=== PATIENT | female | born 1995 | race Two or more races ===

== ENCOUNTER 2018-05-06 18:08 | Emergency (ER) | payer OTHER ==
[~2018-05-06] VITALS: Ht 175.3 cm; Wt 90.7 kg
--- NOTE | 2018-05-06 18:15 | NUR ---
RT SIDE ABDOMEN PAIN X 4 MONTHS, WORSE WHEN COUGHING. COUGH X 1 WEEK, NAUSEA,NAD NOTED, VSS, RESP EVEN AND UNLABORED, PT WAS PUT ON MONITOR, WAITING FOR MD THOMPSON.
[2018-05-06 18:39] LABS: BASOPHILS # (AUTO) 0.1 /CMM (0.0-0.2); BASOPHILS % (AUTO) 0.9 % (0.0-2.0); HEMATOCRIT 36 % (33-45); LYMPHOCYTES # (AUTO) 2.5 /CMM (0.8-4.8); MEAN CORPUSCULAR HGB CONC 33 g/dl (31.0-36.0); MEAN CORPUSCULAR VOLUME 76 fL (82-100); MONOCYTES # (AUTO) 0.6 /CMM (0.1-1.30); MONOCYTES % (AUTO) 6.3 % (2.0-12.0); NEUTROPHILS # (AUTO) 5.7 /CMM (1.8-8.9); NEUTROPHILS % (AUTO) 62.8 % (43.0-81.0); PLATELET COUNT (AUTO) 389 /CMM (150-450); RDW COEFFICIENT OF VARIATION 14.2 (11.5-15.0); RED BLOOD CELL COUNT(AUTO) 4.77 MIL/uL (4.0-5.2); WHITE BLOOD COUNT (AUTO) 9.1 K/uL (4.3-11.0)
[2018-05-06 18:54] LABS: ALBUMIN 3.3 g/dL (3.4-5.0); BILIRUBIN,DIRECT 0.1 mg/dL (0.0-0.2); BILIRUBIN,TOTAL 0.4 mg/dL (0.2-1.0); CALCIUM, SERUM 9.5 mg/dL (8.5-10.1); CREATININE 0.7 mg/dL (0.6-1.3); POTASSIUM 4.2 mmol/L (3.5-5.1); TOTAL PROTEIN, SERUM 7.6 g/dL (6.4-8.2)
[2018-05-06 19:20] LABS: APPEARANCE,URINE Clear (CLEAR); BILIRUBIN,URINE Negative (NEGATIVE); BLOOD, URINE Negative Ery/uL (NEGATIVE); COLOR,URINE Yellow (YELLOW); KETONES,URINE Negative (NEGATIVE); LEUKOCYTE ESTERASE ,URINE Negative (NEGATIVE); NITRITE, URINE Negative (NEGATIVE); PH,URINE 7.5 (5.0-8.0); PROTEIN,URINE Negative (NEGATIVE); UGLUCOSE Negative (NEGATIVE); UROBILINOGEN,URINE 0.2 EU/dL (0.2)
--- NOTE | 2018-05-06 20:03 | NUR ---
PT BACK FROM [facility]
[2018-05-06 20:50] VITALS: BP 118/75
--- NOTE | 2018-05-06 20:50 | NUR ---
Patient discharged to home in stable condition. Written and verbal after care instructions given. Patient verbalizes understanding of instruction. Prescription given.
== END 2018-05-06 20:51 | disposition home or self-care (01) ==
LOC: ER 18:14
DX: J20.9 Acute bronchitis, unspecified (principal); R10.31 Right lower quadrant pain; R05 Cough
CPT/HCPCS: 36415; 71045-TC; 80048-TC; 80076-TC; 81000-TC; 83690-TC; 84703-TC; 85025-TC; A4606; Z7610

== ENCOUNTER 2020-05-24 20:21 | Emergency (ER) | payer OTHER ==
[~2020-05-24] VITALS: Ht 175.3 cm; Wt 90.7 kg
--- NOTE | 2020-05-24 20:48 | NUR ---
PT PRESENTED TO THE ER WITH A C/O BLOOD ON HER UNDERWEAR AND PT NOTICED BLOOD ON THE TOILET PAPER WHEN SHE WIPED S/P USING THE BATHROOM. PT AMBULATED TO THE BATHROOM AND A URINE SAMPLE WAS OBTAINED. PT AMBULATED TO ER 3 WITH A STEADY GAIT.
--- NOTE | 2020-05-24 20:50 | NUR ---
RECTAL EXAM DONE BY MICHELLE GATICA. Female programmer operator numerical control accompanied female patient for MICHELLE GATICA.
[2020-05-24 21:32] LABS: OCCULT BLOOD STOOL POSITIVE (NEGATIVE)
[2020-05-24] MEDS: IV NS 0.9% 1,000 ML BAG IV ONE (21:51)
[2020-05-24] MEDS ORDERED: PANTOPRAZOLE 40 MG VIAL ONE (21:52)
[2020-05-24 21:54] LABS: BASOPHILS # (AUTO) 0.1 /CMM (0.0-0.2); EOSINOPHILS % (AUTO) 1.3 % (0.0-6.0); HEMATOCRIT 35 % (33-45); HEMOGLOBIN 11.3 g/dL (11.5-14.8); LYMPHOCYTES # (AUTO) 2.9 /CMM (0.8-4.8); LYMPHOCYTES % (AUTO) 27.1 % (20.0-44.0); MEAN CORPUSCULAR HGB CONC 32 g/dl (31.0-36.0); MEAN CORPUSCULAR VOLUME 77 fL (82-100); MONOCYTES # (AUTO) 0.7 /CMM (0.1-1.30); MONOCYTES % (AUTO) 6.1 % (2.0-12.0); NEUTROPHILS % (AUTO) 64.5 % (43.0-81.0); PLATELET COUNT (AUTO) 332 /CMM (150-450); RED BLOOD CELL COUNT(AUTO) 4.55 MIL/uL (4.0-5.2); WHITE BLOOD COUNT (AUTO) 10.9 K/uL (4.3-11.0)
[2020-05-24] MEDS: PANTOPRAZOLE 40 MG VIAL IV ONE (21:54)
[2020-05-24 22:16] LABS: ALBUMIN 3.6 g/dL (3.4-5.0); BILIRUBIN,TOTAL 0.2 mg/dL (0.2-1.0); CREATININE 0.7 mg/dL (0.6-1.3); POTASSIUM 3.6 mmol/L (3.5-5.1); TOTAL PROTEIN, SERUM 7.2 g/dL (6.4-8.2)
[2020-05-24 23:25] VITALS: BP 126/56
--- NOTE | 2020-05-24 23:25 | NUR ---
IV removed. Catheter intact and site benign. Pressure and 4x4 applied to site. No bleeding noted.Patient discharged to home in stable condition. Written and verbal after care instructions given. Patient verbalizes understanding of instruction AND RX. PT AMBULATED OUT WITH A STEADY GAIT. VSS.
== END 2020-05-24 23:25 | disposition home or self-care (01) ==
LOC: ER 20:24
DX: K64.4 Residual hemorrhoidal skin tags (principal)
CPT/HCPCS: 36415; 80048; 80076; 82272; 84703; 85025; 85730; 96374; 99283; C9113; J7030

== ENCOUNTER 2021-11-30 00:27 | Emergency (ER) | payer OTHER ==
[~2021-11-30] VITALS: Ht 175.3 cm; Wt 86.2 kg
--- NOTE | 2021-11-30 01:10 | NUR ---
BIBMOTHER C/O RODRIGUEZ X 1 DAY, WITH N/V. PATIENT ALERT AND ORIENTED X3. AMBULATORY WITH NON LABORED BREAHTING.
[2021-11-30] MEDS ORDERED: ACETAMINOPHEN ES 500 MG TABLET ONE ×2 (01:28→03:43)
[2021-11-30] MEDS: ACETAMINOPHEN ES 500 MG TABLET PO ONE ×2 (01:37→03:48)
--- NOTE | 2021-11-30 01:43 | NUR ---
COVID AND INFLUENZA SWABS DONE AND SENT TO LAB.
[2021-11-30] MEDS ORDERED: ACET325T53 PO (03:55)
[2021-11-30] MEDS ORDERED: IBUP-1955 PO (03:55)
--- NOTE | 2021-11-30 04:20 | NUR ---
Patient discharged to home in stable condition. Written and verbal after care instructions given. Patient verbalizes understanding of instruction.
[2021-11-30 05:32] VITALS: BP 115/66
--- NOTE | 2021-12-08 16:00 | NUR ---
PATIENT HERE TODAY AND INFORMED OF POSITIVE RESULT (PCR)
== END 2021-11-30 05:15 | disposition home or self-care (01) ==
LOC: ER 00:28
DX: U07.1 COVID-19 (principal); R51.9 Headache, unspecified; B34.9 Viral infection, unspecified
CPT/HCPCS: 84703; 87804 ×2; 99283; C9803; U0003

== ENCOUNTER 2021-12-08 15:50 | Emergency (ER) | payer OTHER ==
[~2021-12-08] VITALS: Ht 175.3 cm; Wt 86.2 kg
[~2021-12-08 15:50] MED LIST: ACET325T53 PO; IBUP-1955 PO
[2021-12-08 15:57] VITALS: BP 125/79
--- NOTE | 2021-12-08 15:58 | NUR ---
INFORMED THAT HER COVID PCR TEST CAME BACK POSITIVE TODAY
[2021-12-08] MEDS ORDERED: TRIA15OI9 TP (17:14)
[2021-12-08] MEDS ORDERED: DIPH25TA25 PO (17:16)
== END 2021-12-08 18:26 | disposition home or self-care (01) ==
LOC: ER 15:51
DX: L23.9 Allergic contact dermatitis, unspecified cause (principal); Z79.899 Other long term (current) drug therapy

== ENCOUNTER 2022-02-12 21:26 | Emergency (ER) | payer OTHER ==
[~2022-02-12] VITALS: Ht 175.3 cm; Wt 81.6 kg
[~2022-02-12 21:26] MED LIST changes: +DIPH25TA25 PO; +TRIA15OI9 TP
[2022-02-12 23:14] VITALS: BP 121/75
[2022-02-12] MEDS ORDERED: ONDA4TAB5 PO (23:37)
[2022-02-12] MEDS ORDERED: HYDR-4209 PO (23:37)
[2022-02-12] MEDS ORDERED: CYCL10TA9 PO (23:37)
[2022-02-12] MEDS ORDERED: ONDANSETRON 4 MG TAB.RAPDIS ONE (23:49)
[2022-02-12] MEDS ORDERED: HYDROCODONE/APAP 10/325MG TABLET ONE (23:49)
[2022-02-13] MEDS ORDERED: ONDANSETRON 4 MG TAB.RAPDIS SL ONE
[2022-02-13] MEDS ORDERED: HYDROCODONE/APAP 10/325MG TABLET PO ONE
[2022-02-13] MEDS ORDERED: [UNRECOGNIZED DRUG - CODE] PO (00:06)
[2022-02-13] MEDS ORDERED: IBUP-1953 PO (00:06)
--- NOTE | 2022-02-13 00:14 | NUR ---
Patient discharged to home in stable condition. RX Written and verbal after care instructions given. Patient verbalizes understanding of instruction. PT ambulatory with a steady gait
== END 2022-02-13 00:14 | disposition home or self-care (01) ==
LOC: ER 21:28
DX: S16.1XXA Strain of muscle, fascia and tendon at neck level, initial encounter (principal); S29.012A Strain of muscle and tendon of back wall of thorax, initial encounter; R51.9 Headache, unspecified; V49.69XA Unspecified car occupant injured in collision with other motor vehicles in traffic accident, initial encounter; Y93.89 Activity, other specified; Y92.413 State road as the place of occurrence of the external cause; Y99.8 Other external cause status
CPT/HCPCS: Q0162

== ENCOUNTER 2022-11-05 21:55 | Emergency (ER) | payer OTHER ==
[~2022-11-05] VITALS: Ht 175.3 cm; Wt 86.2 kg
[~2022-11-05 21:55] MED LIST changes: +IBUP-1953 PO; +ONDA4TAB5 PO; +[UNRECOGNIZED DRUG - CODE] PO
--- NOTE | 2022-11-05 23:30 | NUR ---
BIBSELF C/O FEELING DIZZY ON AND OFF X 1 WEEK. PT IS AAOX4 AND ABLE TO MAKE NEEDS KNOWN. VITALS CHECKED.
[2022-11-06] MEDS ORDERED: PROCHLORPERAZINE EDISYLATE 10 MG/2 ML VIAL IVP ONE
[2022-11-06] MEDS ORDERED: diphenhydrAMINE HCL 50 MG/ML VIAL IV ONE
[2022-11-06] MEDS ORDERED: PROCHLORPERAZINE EDISYLATE 10 MG/2 ML VIAL ONE (00:13)
[2022-11-06] MEDS ORDERED: diphenhydrAMINE HCL 50 MG/ML VIAL ONE (00:13)
--- NOTE | 2022-11-06 00:26 | NUR ---
IV INSERTED ON RIGHT AC G18. BLOOD DRAWN AND SENT TO LAB. URINE SAMPLE GIVEN AND SENT TO LAB.
[2022-11-06 01:06] LABS: BASOPHILS # (AUTO) 0.1 K/uL (0.0-0.2); BASOPHILS % (AUTO) 0.8 % (0.0-2.0); EOSINOPHILS % (AUTO) 1.2 % (0.0-6.0); HEMATOCRIT 36 % (33-45); LYMPHOCYTES # (AUTO) 4.3 K/uL (0.8-4.8); LYMPHOCYTES % (AUTO) 36.9 % (20.0-44.0); MEAN CORPUSCULAR HGB CONC 31 g/dl (31.0-36.0); MEAN CORPUSCULAR VOLUME 70 fL (82-100); MONOCYTES # (AUTO) 0.8 K/uL (0.1-1.30); MONOCYTES % (AUTO) 7.2 % (2.0-12.0); NEUTROPHILS # (AUTO) 6.3 K/uL (1.8-8.9); NEUTROPHILS % (AUTO) 53.9 % (43.0-81.0); PLATELET COUNT (AUTO) 392 K/uL (150-450); RED BLOOD CELL COUNT(AUTO) 5.19 MIL/uL (4.0-5.2); WHITE BLOOD COUNT (AUTO) 11.6 K/uL (4.3-11.0)
[2022-11-06 01:18] LABS: CALCIUM, SERUM 9.3 mg/dL (8.5-10.1); CREATININE 0.7 mg/dL (0.6-1.3); MAGNESIUM 2.2 mg/dL (1.8-2.4); POTASSIUM 3.2 mmol/L (3.5-5.1)
[2022-11-06] MEDS ORDERED: POTASSIUM CHLORIDE 20 MEQ TAB.PRT.SR PO ONE (02:00)
--- NOTE | 2022-11-06 02:00 | NUR ---
PT REFUSED TO DRINK KDUR. MADE AWARE. PT IS ASKING FOR TAKE HOME MEDICINE PRESCRIPTION.
[2022-11-06] MEDS ORDERED: POTASSIUM CHLORIDE 10 MEQ TABLET.SA ONE (02:04)
[2022-11-06] MEDS ORDERED: POTA20TA83 PO (02:26)
--- NOTE | 2022-11-06 02:41 | NUR ---
IV CANNULA REMOVED
[2022-11-06 02:42] VITALS: BP 133/81
--- NOTE | 2022-11-06 02:42 | NUR ---
Patient discharged to home in stable condition. Written and verbal after care instructions given. Patient verbalizes understanding of instruction.
== END 2022-11-06 02:43 | disposition home or self-care (01) ==
LOC: ER 21:59
DX: R42 Dizziness and giddiness (principal); Z88.1 Allergy status to other antibiotic agents; E87.6 Hypokalemia; D64.89 Other specified anemias
CPT/HCPCS: 36415; 80048-TC; 83735-TC; 84703-TC; 85025-TC; J0780; J1200

== ENCOUNTER 2022-12-04 17:14 | Emergency (ER) | payer OTHER ==
[~2022-12-04] VITALS: Ht 175.3 cm; Wt 81.6 kg
[~2022-12-04 17:14] MED LIST changes: +POTA20TA83 PO
[2022-12-04 17:38] VITALS: BP 110/69
[2022-12-04] MEDS ORDERED: predniSONE 50 MG TABLET PO ONE (19:00)
[2022-12-04] MEDS ORDERED: predniSONE 20 MG TABLET ONE (19:05)
[2022-12-04] MEDS ORDERED: BENZ-13 PO (20:19)
== END 2022-12-04 20:25 | disposition home or self-care (01) ==
LOC: ER 17:16
DX: J02.9 Acute pharyngitis, unspecified (principal); R05.9 Cough, unspecified; Z20.822 Contact with and (suspected) exposure to COVID-19; Z88.6 Allergy status to analgesic agent
CPT/HCPCS: 99283; 87426; 87804; J7512; C9803

== ENCOUNTER 2023-12-22 19:20 | Emergency (ER) | payer OTHER ==
[~2023-12-22] VITALS: Ht 175.3 cm; Wt 81.6 kg
[~2023-12-22 19:20] MED LIST changes: +BENZ-13 PO
[2023-12-22 19:46] VITALS: BP 130/77; TEMP 98.2; O2SAT 100
[2023-12-22] MEDS ORDERED: IBUP-1955 PO (20:02)
== END 2023-12-22 21:05 | disposition home or self-care (01) ==
LOC: ER 19:22
DX: M25.562 Pain in left knee (principal); Z88.8 Allergy status to other drugs, medicaments and biological substances

== ENCOUNTER 2024-11-22 23:33 | Emergency (ER) | payer OTHER ==
[~2024-11-22] VITALS: Ht 175.3 cm; Wt 81.6 kg
[2024-11-22 23:33] VITALS: BP 108/66; TEMP 98.4
[2024-11-23] MEDS ORDERED: IBUPROFEN 600 MG TABLET ONE (00:23)
[2024-11-23] MEDS: IBUPROFEN 600 MG TABLET PO ONE (00:28)
[2024-11-23] MEDS ORDERED: IBUP-1490 PO (01:04)
[2024-11-23 01:07] VITALS: O2SAT 99
== END 2024-11-23 01:08 | disposition home or self-care (01) ==
LOC: ER 23:45
DX: S40.012A Contusion of left shoulder, initial encounter (principal); S09.8XXA Other specified injuries of head, initial encounter; Z79.899 Other long term (current) drug therapy; W22.8XXA Striking against or struck by other objects, initial encounter; Y93.89 Activity, other specified; Y92.89 Other specified places as the place of occurrence of the external cause; Y99.8 Other external cause status
CPT/HCPCS: 72050-TC; 73030-TC